=== PATIENT | male | born 1985 | race Caucasian/White ===

== ENCOUNTER 2017-05-25 19:05 | Emergency (ER) | payer OTHER ==
--- NOTE | 2017-05-25 19:14 | ED ---
Psych HPI - General Source: patient Mode of arrival: ambulatory <Yossi Nance - Last Filed: 05/26/17 02:44> <Erasto Loo - Last Filed: 05/26/17 07:25> - General Chief Complaint: Psychiatric Symptoms Stated Complaint: Petitioned Time Seen by Provider: 05/25/17 19:12 - History of Present Illness Initial Comments: Patient brought in by police for court ordered psychiatric evaluation. Patient was petitioned by his mother (copy of the petition on patient's chart) on May 21 for his recent behavior. Mother states patient has been found passed out in his car as well as a car he stool from the [employer]. Mother states in petitioner patient has refused psychiatric evaluation or help with his frequent alcohol use. Patient states he is sent here by his mother because they're concerned he has [place] to stay. Patient states he refuses to stay with his family who he alleges are all alcoholics. Patient states he has ADHD, denies any other psychiatric diagnoses. Computed tomography scan many psychiatrists in the past. Patient denies being on any psychiatric medications. Pt has a h/o of suicide attempt per mother's petition. Patient has no physical medical complaints at this time. Patient has court order for examination stating "the individual must be examined by a psychiatrist and either a physician or a license psychologist at [facility] ". (Yossi Nance) - Related Data Home Medications Medication Instructions Recorded Confirmed No Known Home Medications [No 05/25/17 05/25/17 Known Home Medications] Allergies Allergy/AdvReac Type Severity Reaction Status Date / Time No Known Allergies Allergy Verified 05/25/17 20:01 Review of Systems ROS Other: All systems not noted in ROS Statement are negative. Constitutional: Denies: fever, chills Eyes: Denies: vision change ENT: Denies: throat pain, congestion Respiratory: Denies: cough, dyspnea Cardiovascular: Denies: chest pain, palpitations Endocrine: Denies: fatigue Gastrointestinal: Denies: abdominal pain, nausea, vomiting Genitourinary: Denies: urgency, dysuria, frequency Musculoskeletal: Denies: back pain Skin: Denies: rash Neurological: Denies: headache, weakness, numbness, confusion Psychiatric: Denies: auditory hallucinations, visual hallucinations, homicidal thoughts, suicidal thoughts <Yossi Nance - Last Filed: 05/26/17 02:44> ROS Other: All systems not noted in ROS Statement are negative. <Erasto Loo - Last Filed: 05/26/17 07:25> ROS Statement: Those systems with pertinent positive or pertinent negative responses have been documented in the HPI. Past Medical History Past Medical History: Asthma History of Any Multi-Drug Resistant Organisms: None Reported Past Surgical History: Orthopedic Surgery Past Psychological History: No Psychological Hx Reported Smoking Status: Current every day smoker Past Alcohol Use History: Daily Past Drug Use History: None Reported <Yossi Nance - Last Filed: 05/26/17 02:44> General Exam Limitations: no limitations General appearance: alert, in no apparent distress, appears intoxicated Head exam: Present: atraumatic, normocephalic Eye exam: Present: normal appearance, PERRL, EOMI Pupils: Present: normal accommodation ENT exam: Present: normal exam, mucous membranes moist, normal external ear exam Neck exam: Present: normal inspection Respiratory exam: Present: normal lung sounds bilaterally. Absent: respiratory distress, wheezes, rales, rhonchi, stridor Cardiovascular Exam: Present: regular rate, normal rhythm GI/Abdominal exam: Present: soft. Absent: distended, tenderness, guarding, rebound, rigid Neurological exam: Present: alert, oriented X3, normal gait. Absent: altered, abnormal gait, motor sensory deficit Psychiatric exam: Present: agitated (mildly). Absent: depressed, homicidal ideation, suicidal ideation Skin exam: Present: warm, dry, intact, normal color. Absent: rash <Yossi Nance - Last Filed: 05/26/17 02:44> <Erasto Loo - Last Filed: 05/26/17 07:25> - General Exam Comments Initial Comments: Standing in room initially. Patient appears intoxicated. Patient speaks loudly , using foul language. Patient is cooperative with exam when directed, sits on bed for examination. (Yossi Nance) Medical Decision Making - Lab Data Result diagrams: 05/25/17 19:26 05/25/17 19:26 <Yossi Nance - Last Filed: 05/26/17 02:44> - Lab Data Result diagrams: 05/25/17 19:26 05/25/17 19:26 <Erasto Loo - Last Filed: 05/26/17 07:25> - Medical Decision Making Pt is court order for evaluation by psychiatrist and physician. We'll evaluate patient for medical clearance. Once sober & medically cleared, will arrange for psychiatric evaluation. All labs reviewed. Pt a/w repeat ETOH. Pt sleeping comfortably in bed, breathing normally. Calm during time in ER. Pt signed out to PA Andressa Veronica, will f/u results for med clearance. Pt will require psychiatrist evaluation once medically cleared. Pt diagnosis and dispo per PA & supervising overnight physician. (Yossi Nance ) Patient denies suicidal ideations EPS evaluated the patient and determined that the patient was safe to home. Patient stated that he would be safe and that he had no thoughts of suicide at this time. (Erasto Loo) - Lab Data Lab Results 05/25/17 05/25/17 05/25/17 Range/Units 19:26 19:26 19:26 WBC 10.5 (3.8-10.6) k/uL RBC 5.34 (4.30-5.90) m/uL Hgb 17.3 (13.0-17.5) gm/dL Hct 52.2 (39.0-53.0) % MCV 97.7 (80.0-100.0) fL MCH 32.4 (25.0-35.0) pg MCHC 33.2 (31.0-37.0) g/dL RDW 12.6 (11.5-15.5) % Plt Count 190 (150-450) k/uL Neutrophils % 61 % Lymphocytes % 28 % Monocytes % 6 % Eosinophils % 2 % Basophils % 1 % Neutrophils # 6.4 (1.3-7.7) k/uL Lymphocytes # 2.9 (1.0-4.8) k/uL Monocytes # 0.6 (0-1.0) k/uL Eosinophils # 0.2 (0-0.7) k/uL Basophils # 0.1 (0-0.2) k/uL Sodium 148 H (137-145) mmol/L Potassium 3.6 (3.5-5.1) mmol/L Chloride 110 H (98-107) mmol/L Carbon Dioxide 20 L (22-30) mmol/L Anion Gap 18 mmol/L BUN 10 (9-20) mg/dL Creatinine 1.08 (0.66-1.25) mg/dL Est GFR (MDRD) Af Amer >60 (>60 ml/min/1.73 sqM) Est GFR (MDRD) Non-Af >60 (>60 ml/min/1.73 sqM) Glucose 105 H (74-99) mg/dL Calcium 10.2 (8.4-10.2) mg/dL Total Bilirubin 0.4 (0.2-1.3) mg/dL AST 38 (17-59) U/L ALT 45 (21-72) U/L Alkaline Phosphatase 56 (38-126) U/L Total Protein 7.7 (6.3-8.2) g/dL Albumin 4.7 (3.5-5.0) g/dL Urine Color Light Yellow Urine Appearance Clear (Clear) Urine pH 6.5 (5.0-8.0) Ur Specific [place] 1.004 (1.001-1.035) Urine Protein Negative (Negative) Urine Glucose (UA) Negative (Negative) Urine Ketones Negative (Negative) Urine Blood Negative (Negative) Urine Nitrite Negative (Negative) Urine Bilirubin Negative (Negative) Urine Urobilinogen <2.0 (<2.0) mg/dL Ur Leukocyte Esterase Negative (Negative) Salicylates <1.0 mg/dL Urine Opiates Screen Not Detected (NotDetected) Ur Oxycodone Screen Not Detected (NotDetected) Urine Methadone Screen Not Detected (NotDetected) Ur Propoxyphene Screen Not Detected (NotDetected) Acetaminophen <10.0 ug/mL Ur Barbiturates Screen Not Detected (NotDetected) U Tricyclic Antidepress Not Detected (NotDetected) Ur Phencyclidine Scrn Not Detected (NotDetected) Ur Amphetamines Screen Not Detected (NotDetected) U Methamphetamines Scrn Not Detected (NotDetected) U Benzodiazepines Scrn Not Detected (NotDetected) Urine Cocaine Screen Not Detected (NotDetected) U Marijuana (THC) Screen Detected H (NotDetected) Disposition <Yossi Nance - Last Filed: 05/26/17 02:44> Time of Disposition: 07:25 <Erasto Loo - Last Filed: 05/26/17 07:25> Clinical Impression: Acute alcohol intoxication, Behavior problem Disposition: HOME SELF-CARE Referrals: None,Stated [Primary Care Provider] - 1-2 days
[2017-05-25 19:48] LABS: Basophils # (A) 0.1 k/uL (0-0.2); Basophils % (A) 1 %; CH 33.1; Eosinophils # (A) 0.2 k/uL (0-0.7); Eosinophils % (A) 2 %; HCT 52.2 % (39.0-53.0); HDW 2.23; HGB 17.3 gm/dL (13.0-17.5); Luc # (Auto) 0.27; Luc % (Auto) 3; Lymphocytes # (A) 2.9 k/uL (1.0-4.8); Lymphocytes % (A) 28 %; MCH 32.4 pg (25.0-35.0); MCHC 33.2 g/dL (31.0-37.0); MCV 97.7 fL (80.0-100.0); Mean Platelet Volume 7.7; Monocytes # (A) 0.6 k/uL (0-1.0); Monocytes % (A) 6 %; Neutrophils # (A) 6.4 k/uL (1.3-7.7); Neutrophils % (A) 61 %; RBC 5.34 m/uL (4.30-5.90); RDW 12.6 % (11.5-15.5); WBC 10.5 k/uL (3.8-10.6); WBC (Perox) 10.21
[2017-05-25 19:53] LABS: Appearance,Urine Clear (Clear); Bilirubin,Urine Negative (Negative); Glucose,Urine (UA) Negative (Negative); Ketones,Urine Negative (Negative); Leukocyte Esterase,Urine Negative (Negative); Nitrite,Urine Negative (Negative); PH, Urine 6.5 (5.0-8.0); Protein,Urine Negative (Negative); Specific Gravity,Urine 1.004 (1.001-1.035); UA Billing (MACRO vs. MICRO) CHEM; Urobilinogen,Urine <2.0 mg/dL (<2.0)
[2017-05-25 20:04] LABS: ALT 45 U/L (21-72); AST 38 U/L (17-59); Acetaminophen <10.0 ug/mL; Alkaline Phosphatase 56 U/L (38-126); Anion Gap 18 mmol/L; Blood Urea Nitrogen 10 mg/dL (9-20); Calcium 10.2 mg/dL (8.4-10.2); Carbon Dioxide 20 mmol/L (22-30); Chloride 110 mmol/L (98-107); Glucose 105 mg/dL (74-99); Non-African American GFR(MDRD) >60 (>60 ml/min/1.73 sqM); Potassium 3.6 mmol/L (3.5-5.1); Salicylate <1.0 mg/dL; Sodium 148 mmol/L (137-145); Total Bilirubin 0.4 mg/dL (0.2-1.3); Total Protein 7.7 g/dL (6.3-8.2)
[2017-05-26 07:48] VITALS: BP 133/64; PULSE 112; RESP 18; TEMP 98.7
== END 2017-05-26 07:45 | disposition home or self-care (01) ==
LOC: EC 19:05
DX: F10.120 Alcohol abuse with intoxication, uncomplicated (principal); F91.9 Conduct disorder, unspecified; F17.200 Nicotine dependence, unspecified, uncomplicated
CPT/HCPCS: 36415; 80053; 80306; 81003; 82075; 83520; 85025; 93005; 99284

== ENCOUNTER → 2018-03-25 | Outpatient (CLI) | payer OTHER ==
--- NOTE | 2018-03-25 08:24 | US ---
EXAMINATION TYPE: US liver DATE OF EXAM: 03/25/2018 COMPARISON: NONE CLINICAL HISTORY: Z86.19 Hep C antibody test positive. EXAM MEASUREMENTS: Liver Length: 16.0 cm Gallbladder Wall: 0.26 cm CBD: 0.3 cm Right Kidney: 10.7 x 5.6 x 5.8 cm Pancreas: Obscured by bowel gas Liver: Increased attenuation, decreased visualization of portal triads suggestive of mild hepatocell ular disease. This limits evaluation for hepatic masses. Gallbladder: No stones visualized. Wall measuring upper limits of normal , however within normal coleman its. Evidence for sonographic Covarrubias's sign: No CBD: wnl as visualized, distal portion obscured by bowel gas Right Kidney: No hydronephrosis or masses seen. Lower pole obscured by bowel gas IMPRESSION: 1. Findings most suggestive of mild hepatocellular disease. No focal masses are seen on today's exami nation. 2. No sonographic evidence of cholelithiasis or acute cholecystitis.
[2018-03-25 08:47] LABS: Basophils % (A) 0 %; Eosinophils # (A) 0.1 k/uL (0-0.7); Eosinophils % (A) 2 %; HCT 46.1 % (39.0-53.0); HGB 15.2 gm/dL (13.0-17.5); Lymphocytes # (A) 1.8 k/uL (1.0-4.8); Lymphocytes % (A) 34 %; MCV 90.9 fL (80.0-100.0); Mean Platelet Volume 7.5; Monocytes # (A) 0.3 k/uL (0-1.0); Monocytes % (A) 7 %; Neutrophils # (A) 2.9 k/uL (1.3-7.7); Neutrophils % (A) 55 %; Platelet Count 161 k/uL (150-450); RBC 5.08 m/uL (4.30-5.90); RDW 13.4 % (11.5-15.5); WBC 5.2 k/uL (3.8-10.6)
[2018-03-25 08:53] LABS: Albumin 4.4 g/dL (3.5-5.0); Bilirubin, Delta 0.2 mg/dL (0.0-0.2); Bilirubin,Unconjugated 0.6 mg/dL (0.0-1.1); INR 1.1 (<1.2); Prothrombin Time 10.6 sec (9.0-12.0); Total Bilirubin 0.8 mg/dL (0.2-1.3); Total Protein 7.2 g/dL (6.3-8.2)
[2018-03-28 14:26] LABS: HCV Quant Log 6.38 (<1.08)
== END | disposition home or self-care (01) ==
LOC: RADUSWWP 07:45
DX: Z09 Encounter for follow-up examination after completed treatment for conditions other than malignant neoplasm (principal); Z86.19 Personal history of other infectious and parasitic diseases
CPT/HCPCS: 76705; 80076; 85025; 85610; 87522; 87902

== ENCOUNTER 2018-07-27 19:51 | Emergency (ER) | payer OTHER ==
[2018-07-27 20:00] VITALS: TEMP 98.8
--- NOTE | 2018-07-27 21:08 | ED ---
General Adult HPI - General Chief complaint: Fall Stated complaint: Foot injury Source: patient, RN notes reviewed, old records reviewed Mode of arrival: wheelchair Limitations: physical limitation - History of Present Illness Initial comments: 33-year-old male patient presents to ED after sustaining a fall with loss of consciousness yesterday. Patient was running up the stairs when he slipped fell forward and hit his head on the stairs and suffered an unknown period of time loss of consciousness. Patient was seen at [facility] for this problem. Patient was diagnosed with ankle sprain, reportedly did not having injuring his head. Patient also sustained a right ankle injury. Patient returns to seek care today because he has been having dizziness, headaches, some blurring in his right eye. Patient has a notable ecchymoses around the brow of his right eye. Patient has had nausea without emesis. Patient denies chest pain, shortness of breath, abdominal pain. Systemic: Pt denies fatigue, myalgia, fever/chills, rash. Pt denies weakness, night sweats, weight loss. Neuro: Pt denies syncope or pre-syncope. HEENT: Pt denies ocular discharge or irritation, otalgia, rhinorrhea, pharyngitis or notable lymphadenopathy. Cardiopulmonary: Pt denies chest pain, SOB, heart palpitations, dyspnea on exertion. Abdominal/GI: Pt denies abdominal pain, n/v/d. : Pt denies dysuria, burning w/ urination, frequency/urgency. Denies new onset urinary or bowel incontinence. MSK: Pt denies myalgia, loss of strength or function in extremities. Neuro: Pt denies new onset weakness, paresthesias. - Related Data Home Medications Medication Instructions Recorded Confirmed Ibuprofen [Motrin Ib] 200 mg PO BID PRN 07/27/18 07/27/18 Lisinopril 40 mg PO DAILY 07/27/18 07/27/18 Previous Rx's Medication Instructions Recorded Acetaminophen [Acetaminophen ER] 650 mg PO Q6HR #20 tablet 07/27/18 Allergies Allergy/AdvReac Type Severity Reaction Status Date / Time No Known Allergies Allergy Verified 07/27/18 20:00 Review of Systems ROS Statement: Those systems with pertinent positive or pertinent negative responses have been documented in the HPI. ROS Other: All systems not noted in ROS Statement are negative. Past Medical History Past Medical History: Asthma, Hypertension History of Any Multi-Drug Resistant Organisms: None Reported Past Surgical History: Orthopedic Surgery Past Psychological History: No Psychological Hx Reported Smoking Status: Former smoker Past Alcohol Use History: None Reported, Daily Past Drug Use History: None Reported General Exam - General Exam Comments Initial Comments: Constitutional: NAD, AOX3, Pt has pleasant affect. HEENT: NC/AT, trachea midline, neck supple, no lymphadenopathy. Posterior pharynx non erythematous, without exudates. External ears appear normal, without discharge. Mucous membranes moist. Eyes PERRLA, EOM intact. There is no scleral icterus. No pallor noted. Cardiopulmonary: RRR, no murmurs, rubs or gallops, no JVD noted. Lungs CTAB in anterior and posterior lopez. No peripheral edema. Abdominal exam: Abdomen soft and non-distended. Abdomen non-tender to palpation in all 4 quadrants. Bowel sounds active in LLQ. No hepatosplenomegaly. No ecchymosis Neuro: CN II-XII intact. No nuchal rigidity. No focal deficit, no facial droop. MSK: Mild right ankle edema and right foot edema, small amount of ecchymoses noted at lateral right ankle. No posterior calf tenderness bilaterally, homans sign negative bilaterally. Posterior tibialis, dorsalis pedis and radial pulse + 2 bilaterally. Sensation intact in upper and lower extremities. Full active ROM in upper and lower extremities, 5/5 strength. Limitations: physical limitation Course Vital Signs 07/27/18 07/27/18 19:54 22:11 Temperature 98.8 F Pulse Rate 85 59 L Respiratory 18 16 Rate Blood Pressure 175/106 144/94 O2 Sat by Pulse 99 98 Oximetry Medical Decision Making - Medical Decision Making 33-year-old male patient 6 evaluation for having slip and fall yesterday resulting in a loss of consciousness, injury to right ankle. Patient was initially evaluated at [facility] for this problem. Patient is returning today because he is having some headaches, mild blurry vision, nausea without emesis. Patient initially wants more imaging on his right ankle.. Patient now initial imaging was done of his head and neck history [facility]. Physical exam of neuro, cardiopulmonary, abdominal, MSK, HEENT systems were conducted. Patient, exam within normal limits, no cervical spinal tenderness, full active range of motion of neck. No focal deficit. Mild mode ecchymosis noted at right orbit, extraocular movements intact, eyes PERRLA. Patient has full active range of motion of her lower extremities, sensation intact, distal pulses intact. Mild amount of edema noted right ankle. Imaging studies were conducted, noncontrast CT of head and cervical spine tenderness display any acute process. Noncontrast CT of the orbit, sinuses didn't display any acute process. Plain film of right ankle and foot displayed some small chip fractures. Patient had been splint. Patient immediate prescription for crutches. Patient given orthopedic follow-up. Splint patient that he is likely dealing with a concussion. Patient to follow-up with his primary care provider in 1-2 days for the symptoms. Patient educated on concussion treatment , rest the brain, decreased stimuli. Patient to return to ED if any new signs symptoms develop including loss of consciousness, chest pain, shortness breath, any other new symptoms. Case discussed with Dr. Barnard/ Disposition Clinical Impression: Fall, Concussion Disposition: HOME SELF-CARE Condition: Good Instructions: Ankle Sprain (ED), Concussion (ED) Additional Instructions: Patient to adhere to previously discussed treatment plan and will take medication(s) as directed. Patient to follow up with PCP in 1-2 days. Patient to return to ED if symptoms do not improve. Prescriptions: Acetaminophen [Acetaminophen ER] 650 mg PO Q6HR #20 tablet Is patient prescribed a controlled substance at d/c from ED?: No Referrals: Bogdan Menon MD [Primary Care Provider] - 1-2 days Blas Bruner MD [STAFF PHYSICIAN] - 1-2 days Time of Disposition: 23:26
--- NOTE | 2018-07-27 21:30 | CT ---
EXAMINATION TYPE: CT sinus wo con DATE OF EXAM: 07/27/2018 COMPARISON: None HISTORY: Fall. Right orbit contusion. CT DLP: 660 mGycm. Automated Exposure Control for Dose Reduction was Utilized. TECHNIQUE: CT scan of the sinuses is performed without contrast, axial images are obtained, coronal r eformatted images are also reviewed. FINDINGS: The visualized mandible appears intact. Temporomandibular joints appear normal. Zygomatic a rches appear normal. Nasal bone appears intact. Orbital margins are intact. There is no evidence of a blowout fracture. Maxilla is intact. There is no evidence of retro-orbital mass. There is fairly nor mal aeration of the paranasal sinuses. IMPRESSION: Negative CT scan of the facial bones and paranasal sinuses. There is minimal subcutaneous edema anter ior to the right maxilla. No fracture.
--- NOTE | 2018-07-27 21:32 | XR ---
EXAMINATION TYPE: XR foot complete RT DATE OF EXAM: 07/27/2018 COMPARISON: NONE HISTORY: Pain TECHNIQUE: 3 views FINDINGS: Metatarsals are intact. I see no fracture nor dislocation. Joint spaces are normal. There i s mild soft tissue swelling of the forefoot. IMPRESSION: Mild soft tissue swelling. No fracture.
--- NOTE | 2018-07-27 21:34 | XR ---
EXAMINATION TYPE: XR ankle complete RT DATE OF EXAM: 07/27/2018 COMPARISON: NONE HISTORY: Pain and swelling TECHNIQUE: 3 views FINDINGS: There is soft tissue swelling over the lateral malleolus. Ankle mortise is anatomic. There is a curvilinear 1.5 cm bony density projected over the lateral aspect of the distal fibula that is p robably an avulsion chip fracture of the fibula. There is also a 5 mm bony density at the anterior ma lleolus on the lateral view that could be an additional chip fracture. IMPRESSION: Soft tissue swelling. Small chip fractures of the distal fibula and anterior malleolus of the distal tibia.
--- NOTE | 2018-07-27 21:41 | CT ---
EXAMINATION TYPE: CT brain joselynine wo con DATE OF EXAM: 07/27/2018 COMPARISON: None HISTORY: Fall. CT DLP: 1014.7 mGycm Automated exposure control for dose reduction was used. TECHNIQUE: CT scan of the head and cervical spine are performed without contrast. FINDINGS: Ventricles and sulci appear normal. There is no mass effect nor midline shift. There is n o sign of intracranial hemorrhage. The calvarium appears intact. The cervical vertebra have normal spacing and alignment. Posterior elements are intact. Facet joints appear normal. The skull base appears intact. IMPRESSION: Normal CT scan of the brain. Normal CT scan of the cervical spine.
[2018-07-27] MEDS ORDERED: ACETAMINOPHEN TAB 325 MG TAB PO STA (21:54)
[2018-07-27] MEDS ORDERED: KETOROLAC 60 MG/2 ML VIAL IM STA (22:01)
[2018-07-27 22:12] VITALS: BP 144/94; PULSE 59; RESP 16
== END 2018-07-27 22:32 | disposition home or self-care (01) ==
LOC: EC 19:51
DX: S06.0X9A Concussion with loss of consciousness of unspecified duration, initial encounter (principal); I10 Essential (primary) hypertension; Z79.899 Other long term (current) drug therapy; Z87.891 Personal history of nicotine dependence; W10.9XXA Fall (on) (from) unspecified stairs and steps, initial encounter; Y92.009 Unspecified place in unspecified non-institutional (private) residence as the place of occurrence of the external cause
CPT/HCPCS: 99284; 96372; 73610; 73630; 72125; 70450; 70486; J1885

== ENCOUNTER → 2019-01-23 | Outpatient (CLI) | payer OTHER ==
[2019-01-23 16:05] LABS: HCT 45.5 % (39.0-53.0); HGB 15.4 gm/dL (13.0-17.5); MCH 31.3 pg (25.0-35.0); MCHC 33.8 g/dL (31.0-37.0); MCV 92.4 fL (80.0-100.0); Mean Platelet Volume 7.6; Platelet Count 180 k/uL (150-450); RBC 4.92 m/uL (4.30-5.90); RDW 12.6 % (11.5-15.5); WBC 5.5 k/uL (3.8-10.6)
[2019-01-23 23:53] LABS: Albumin 4.7 g/dL (3.80-4.90); Albumin/Globulin Ratio 2.24 (1.60-3.17); Bilirubin, Conjugated 0.2 mg/dL (0.20-0.40); Bilirubin,Unconjugated 0.4 mg/dL; Globulin 2.1 g/dL (1.6-3.3); Total Bilirubin 0.6 mg/dL (0.2-1.2); Total Protein 6.8 g/dL (6.2-8.2)
[2019-01-24 15:39] LABS: Hepatits C Virus RNA DETECTED (Not detected); LOG HCV IU/mL 6.14 (<1.08)
== END | disposition home or self-care (01) ==
LOC: LABWHC1 15:40
PROVIDERS: ATTEND Physician Assistant
DX: B18.2 Chronic viral hepatitis C (principal)
CPT/HCPCS: 36415; 80076; 85027; 87522

== ENCOUNTER 2019-03-20 16:52 | Emergency (ER) | payer OTHER ==
[2019-03-20 16:58] VITALS: RESP 18
--- NOTE | 2019-03-20 17:19 | ED ---
General Adult HPI - General Chief complaint: Psychiatric Symptoms Stated complaint: MENTAL HEALTH Time Seen by Provider: 03/20/19 17:01 Source: patient, RN notes reviewed Mode of arrival: ambulatory Limitations: no limitations - History of Present Illness Initial comments: Patient is a pleasant 34-year-old male presenting to the emergency department with concerns for being manic. Patient is having racing thoughts. Patient states it is hard to concentrate. Patient states once he would like that in order. Patient does have a distant history of alcohol use however has only drank once in the past several months. Patient denies suicidal ideation however is concerned if he has one more drink that he could become that way. No homicidal thoughts. No physical complaints. No street drug use. - Related Data Home Medications Medication Instructions Recorded Confirmed Dextroamphetamine/Amphetamine 20 mg PO DAILY 03/20/19 03/20/19 [Adderall Xr] Lisinopril 20 mg PO DAILY 03/20/19 03/20/19 Allergies Allergy/AdvReac Type Severity Reaction Status Date / Time No Known Allergies Allergy Verified 03/20/19 17:43 Review of Systems ROS Statement: Those systems with pertinent positive or pertinent negative responses have been documented in the HPI. ROS Other: All systems not noted in ROS Statement are negative. Constitutional: Denies: fever Eyes: Denies: eye pain ENT: Denies: ear pain Respiratory: Denies: cough Cardiovascular: Denies: chest pain Endocrine: Denies: fatigue Gastrointestinal: Denies: abdominal pain Genitourinary: Denies: dysuria Musculoskeletal: Denies: back pain Skin: Denies: rash Neurological: Denies: weakness Psychiatric: Reports: as per HPI Past Medical History Past Medical History: Asthma, Hypertension History of Any Multi-Drug Resistant Organisms: None Reported Past Surgical History: Orthopedic Surgery Past Psychological History: Anxiety, Bipolar, Depression Smoking Status: Current every day smoker Past Alcohol Use History: Abuse Past Drug Use History: None Reported General Exam Limitations: no limitations General appearance: alert, in no apparent distress Head exam: Present: atraumatic Eye exam: Present: normal appearance, PERRL ENT exam: Present: normal oropharynx Neck exam: Present: normal inspection Respiratory exam: Present: normal lung sounds bilaterally Cardiovascular Exam: Present: regular rate, normal rhythm GI/Abdominal exam: Present: soft. Absent: tenderness Extremities exam: Present: normal inspection Neurological exam: Present: alert Psychiatric exam: Present: manic (Patient does appear slightly manic) Skin exam: Present: normal color Course Vital Signs 03/20/19 16:54 Temperature 98.3 F Pulse Rate 104 H Respiratory 18 Rate Blood Pressure 119/79 O2 Sat by Pulse 98 Oximetry Medical Decision Making - Medical Decision Making Patient was seen by mental health services who recommends discharge and did provide follow-up information. Patient reevaluated and resting comfortably in bed. Patient is comfortable with discharge. - Lab Data Lab Results 03/20/19 Range/Units 17:49 Urine Opiates Screen Not Detected (NotDetected) Ur Oxycodone Screen Not Detected (NotDetected) Urine Methadone Screen Not Detected (NotDetected) Ur Propoxyphene Screen Not Detected (NotDetected) Ur Barbiturates Screen Not Detected (NotDetected) U Tricyclic Antidepress Not Detected (NotDetected) Ur Phencyclidine Scrn Not Detected (NotDetected) Ur Amphetamines Screen Not Detected (NotDetected) U Methamphetamines Scrn Not Detected (NotDetected) U Benzodiazepines Scrn Not Detected (NotDetected) Urine Cocaine Screen Not Detected (NotDetected) U Marijuana (THC) Screen Detected H (NotDetected) Disposition Clinical Impression: Bipolar disorder Disposition: HOME SELF-CARE Condition: Stable Instructions (If sedation given, give patient instructions): Bipolar Disorder (ED) Additional Instructions: Please do follow-up with mental health services as directed. Continue to avoid alcohol. Return for worsening symptoms or other concerns. Is patient prescribed a controlled substance at d/c from ED?: No Referrals: Bogdan Menon MD [Primary Care Provider] - 1-2 days Time of Disposition: 19:35
[2019-03-20 18:11] LABS: Amphetamine Screen,Urine Not Detected (NotDetected); Benzodiazepines Screen,Urine Not Detected (NotDetected); Cocaine Screen,Urine Not Detected (NotDetected); Opiate Screen,Urine Not Detected (NotDetected); Phencyclidine Screen,Urine Not Detected (NotDetected); Urn Cannabinoid Scrn Detected (NotDetected)
[2019-03-20 18:12] LABS: Barbiturate Screen,Urine Not Detected (NotDetected); Methadone Screen, Urine Not Detected (NotDetected); Oxycodone Screen, Urine Not Detected (NotDetected); Tricyclic Antidepressant,Urine Not Detected (NotDetected)
[2019-03-20 19:53] VITALS: BP 158/76; PULSE 95; TEMP 98
== END 2019-03-20 19:54 | disposition home or self-care (01) ==
LOC: EC 16:52
DX: F31.9 Bipolar disorder, unspecified (principal); I10 Essential (primary) hypertension; F17.200 Nicotine dependence, unspecified, uncomplicated; Z86.59 Personal history of other mental and behavioral disorders; Z79.899 Other long term (current) drug therapy
CPT/HCPCS: 80306; 82075; 99284

== ENCOUNTER → 2019-03-23 | Outpatient (CLI) | payer OTHER ==
[2019-03-23 15:58] LABS: HCT 41.4 % (39.0-53.0); HGB 13.4 gm/dL (13.0-17.5); MCH 30.3 pg (25.0-35.0); MCHC 32.3 g/dL (31.0-37.0); MCV 93.8 fL (80.0-100.0); Mean Platelet Volume 7.7; Platelet Count 175 k/uL (150-450); RBC 4.42 m/uL (4.30-5.90); RDW 13.1 % (11.5-15.5); WBC 6.8 k/uL (3.8-10.6)
[2019-03-23 23:36] LABS: African American GFR (CKD) 127.8 (60.0-200.0); Albumin 4.1 g/dL (3.80-4.90); Albumin/Globulin Ratio 2.28 (1.60-3.17); Anion Gap 4.6 mmol/L (4.00-12.00); BUN/Creat Ratio 17.78 Ratio (12.00-20.00); Calcium 8.8 mg/dL (8.7-10.3); Carbon Dioxide 31.4 mmol/L (21.6-31.8); Globulin 1.8 g/dL (1.6-3.3); Potassium 4.4 mmol/L (3.5-5.5); Total Bilirubin 0.2 mg/dL (0.2-1.2); Total Protein 5.9 g/dL (6.2-8.2)
== END | disposition home or self-care (01) ==
LOC: LABWHC1 15:05
PROVIDERS: ATTEND Internal Medicine
DX: I10 Essential (primary) hypertension (principal)
CPT/HCPCS: 36415; 80053; 85027

== ENCOUNTER → 2019-10-04 | Outpatient (CLI) | payer OTHER ==
[2019-10-04 12:29] LABS: HCT 47.8 % (39.0-53.0); HGB 16.1 gm/dL (13.0-17.5); MCH 30.3 pg (25.0-35.0); MCHC 33.7 g/dL (31.0-37.0); MCV 90.1 fL (80.0-100.0); Mean Platelet Volume 8.2; Platelet Count 166 k/uL (150-450); RBC 5.31 m/uL (4.30-5.90); RDW 12.4 % (11.5-15.5); WBC 4.7 k/uL (3.8-10.6)
[2019-10-04 16:06] LABS: Albumin 4.8 g/dL (3.80-4.90); Albumin/Globulin Ratio 2.4 (1.60-3.17); Bilirubin, Conjugated 0.2 mg/dL (0.20-0.40); Bilirubin,Unconjugated 0.4 mg/dL; Total Bilirubin 0.6 mg/dL (0.2-1.2); Total Protein 6.8 g/dL (6.2-8.2)
== END | disposition home or self-care (01) ==
LOC: LABWHC1 11:19
PROVIDERS: ATTEND Physician Assistant
DX: B18.2 Chronic viral hepatitis C (principal)
CPT/HCPCS: 36415; 80076; 85027; 87522